=== PATIENT | male | born 1980 | race Caucasian/White ===

== ENCOUNTER 2022-05-13 15:54 | Emergency (ER) | payer BC, OTHER ==
--- OUTSIDE RECORDS SUMMARY | 2022-05-13 15:59 | XMS REPORT | Continuity of Care Document ---
:1980 [facility] Organization [facility] t Address [address] [place] [address] [address] [place] [address] Care Team Providers Name Role Phone KARI BECKER Primary Care Physician Unavailable Kari Becker Attending Clinician Unavailable NATALIE WEBER Attending Clinician Unavailable DESIRAE TEJEDA Attending Clinician Unavailable Desirae Tejeda MD Attending Clinician Doctor Unassigned, [place] Attending Clinician Unavailable MICHA BICRH Attending Clinician Unavailable Micha Birch MD Attending Clinician Payers Payer Name Policy Type Policy Number Effective Date Expiration Date [facility] [id number] 2015 CHOICE 00:00:00 Problems Condition Condition Condition Status Onset Resolution Last Treating Co mments Source Name Details Category Date Date Treatment Clinician Date C. C. Disease Active 2019-0 Univers difficile difficile 4-14 ity of diarrhea diarrhea 00:00: [address] Rotavirus Rotavirus Disease Active 2019-0 Uni vers infection infection 4-14 ity of 00:00: [address] Gastroente Gastroente Disease Active 2019-0 U nivers ritis ritis 4-13 ity of 00:00: [place] 00 Medical Branch Gastropare Gastropare Disease Active 2018-0 U nivers sis sis 4-12 ity of 00:00: [place] 00 Medical Branch Cataract Cataract Disease Active Unive rs ity of [facility] Allergies, Adverse Reactions, Alerts Allergy Allergy Status Severity Reaction(s) Onset Inactive Treating Comm ents Source Name Type Date Date Clinician NO KNOWN Drug Active Univers ALLERGIE Class ity of S [facility] Social History Social Habit Start Date Stop Date Quantity Comments Source Exposure to Not sure [facility] SARS-CoV-2 [facility] (event) Branch Tobacco use and 2021-02-20 2021-02-20 Never used Universit y of exposure 00:00:00 00:00:00 [facility] Alcohol intake 2021-02-20 2021-02-20 Current University of 00:00:00 00:00:00 non-drinker of [facility] alcohol Branch (finding) Sex Ass[birth year] At [birth year] Universit [facility] of 00:00:00 00:00:00 [facility] Smoking Status Start Date Stop Date Source Never smoker [facility] Medications Ordered Filled Start Stop Current Ordering Indication Dosage Frequency Signature Comments Components Source Medication Medication Date Date Medication? Clinician (SIG) Name Name metFORMIN Yes 1000mg Take 1,000 Univers 1,000 mg 7-13 mg by ity of tablet 18:45: mouth 2 [place] [address] (two) Medical times [place] daily with meals. MULTIVITAMI Yes 1{tbl} Take 1 Un dulce N WITH 7-13 tablet by ity of MINERALS 18:45: mouth [place] (MULTIVITAM 32 daily. Medica l IN & Branch MINERAL FORMULA ORAL) docusate Yes 100mg Take 100 Univ ers (STOOL 7-13 mg by ity of SOFTENER) 18:45: mouth [place] 100 mg 32 daily. Medical capsule Branch semaglutide Yes 1{ampul inject 1 Univers (OZEMPIC 7-13 e} Ampule ity of [place]) 18:45: under the [place] 32 skin Medical weekly. Branch metFORMIN Yes 1000mg Take 1,000 Univers 1,000 mg 7-13 mg by ity of tablet 18:45: mouth 2 [place] [address] (two) Medical times Branch daily with meals. MULTIVITAMI Yes 1{tbl} Take 1 Un dulce N WITH 7-13 tablet by ity of MINERALS 18:45: mouth [place] (MULTIVITAM 32 daily. Medica l IN & Branch MINERAL FORMULA ORAL) docusate 0 Yes 100mg Take 100 Univ ers (STOOL 7-13 mg by ity of SOFTENER) 18:45: mouth [place] 100 mg 32 daily. Medical capsule Branch semaglutide Yes 1{ampul inject 1 Univers (OZEMPIC 7-13 e} Ampule ity of [place]) 18:45: under the [place] 32 skin Medical weekly. Branch lisinopril Yes 2.5mg Take 2.5 Un dulce 2.5 mg 7-13 mg by ity of tablet 18:44: mouth [place] 09 daily. Medical Branch lisinopril Yes 2.5mg Take 2.5 Un dulce 2.5 mg 7-13 mg by ity of tablet 18:44: mouth [place] 09 daily. Medical Branch MethylPREDN MethylPREDN 2020- No Kari as Common ISolone ISolone 03-21 [place] directed Spi rit 00:00: 00:00 - [facility] 00 :00 [facility] metFORMIN 2019-0 Yes 500mg Take 500 Uni vers (FORTAMET) 5-11 mg by ity of 500 mg 24 20:34: mouth 2 [place] hr tablet 56 (two) Medical times Branch daily with meals. MULTIVITAMI Yes 1{tbl} Take 1 Un dulce N WITH 5-11 tablet by ity of MINERALS 20:34: mouth [place] (MULTIVITAM 56 daily. Medica l IN & Branch MINERAL FORMULA ORAL) docusate 2019-0 Yes 100mg Take 100 Univ ers (STOOL 5-11 mg by ity of SOFTENER) 20:34: mouth [place] 100 mg 56 daily. Medical capsule Branch semaglutide Yes 1{ampul inject 1 Univers (OZEMPIC 5-11 e} Ampule ity of [place]) 20:34: under the [place] 56 skin Medical weekly. Branch lisinopril Yes 2.5mg Take 2.5 Un dulce 2.5 mg 5-11 mg by ity of tablet 20:34: mouth [place] 56 daily. Medical Branch metFORMIN 2020-0 Yes 500mg Take 500 Uni vers (FORTAMET) 5-11 mg by ity of 500 mg 24 20:34: mouth 2 [place] hr tablet 56 (two) Medical times [place] daily with meals. MULTIVITAMI 2020-0 Yes 1{tbl} Take 1 Un dulce N WITH 5-11 tablet by ity of MINERALS 20:34: mouth [place] (MULTIVITAM 56 daily. Medica l IN & Branch MINERAL FORMULA ORAL) docusate 2020-0 Yes 100mg Take 100 Univ ers (STOOL 5-11 mg by ity of SOFTENER) 20:34: mouth [place] 100 mg 56 daily. Medical capsule Branch semaglutide 2020-0 Yes 1{ampul inject 1 Univers (OZEMPIC 5-11 e} Ampule ity of [place]) 20:34: under the [place] 56 skin Medical weekly. Branch lisinopril 2020-0 Yes 2.5mg Take 2.5 Un dulce 2.5 mg 5-11 mg by ity of tablet 20:34: mouth [place] 56 daily. Medical Branch metFORMIN 2020-0 Yes 500mg Take 500 Uni vers (FORTAMET) 5-11 mg by ity of 500 mg 24 20:34: mouth 2 [place] hr tablet 56 (two) Medical times [place] daily with meals. MULTIVITAMI 2020-0 Yes 1{tbl} Take 1 Un dulce N WITH 5-11 tablet by ity of MINERALS 20:34: mouth [place] (MULTIVITAM 56 daily. Medica l IN & Branch MINERAL FORMULA ORAL) docusate 2020-0 Yes 100mg Take 100 Univ ers (STOOL 5-11 mg by ity of SOFTENER) 20:34: mouth [place] 100 mg 56 daily. Medical capsule Branch semaglutide 2020-0 Yes 1{ampul inject 1 Univers (OZEMPIC 5-11 e} Ampule ity of [place]) 20:34: under the [place] 56 skin Medical weekly. Branch lisinopril 2020-0 Yes 2.5mg Take 2.5 Un dulce 2.5 mg 5-11 mg by ity of tablet 20:34: mouth [place] 56 daily. Medical Branch metFORMIN 2020-0 Yes 500mg Take 500 Uni vers (FORTAMET) 5-11 mg by ity of 500 mg 24 20:34: mouth 2 [place] hr tablet 56 (two) Medical times [place] daily with meals. MULTIVITAMI 2020-0 Yes 1{tbl} Take 1 Un dulce N WITH 5-11 tablet by ity of MINERALS 20:34: mouth [place] (MULTIVITAM 56 daily. Medica l IN & Branch MINERAL FORMULA ORAL) docusate 2020-0 Yes 100mg Take 100 Univ ers (STOOL 5-11 mg by ity of SOFTENER) 20:34: mouth [place] 100 mg 56 daily. Medical capsule Branch semaglutide 2020-0 Yes 1{ampul inject 1 Univers (OZEMPIC 5-11 e} Ampule ity of [place]) 20:34: under the [place] 56 skin Medical weekly. Branch lisinopril 2020-0 Yes 2.5mg Take 2.5 Un dulce 2.5 mg 5-11 mg by ity of tablet 20:34: mouth [place] 56 daily. Medical Branch metFORMIN 2020-0 Yes 500mg Take 500 Uni vers (FORTAMET) 5-11 mg by ity of 500 mg 24 20:34: mouth 2 [place] hr tablet 56 (two) Medical times [place] daily with meals. MULTIVITAMI 2020-0 Yes 1{tbl} Take 1 Un dulce N WITH 5-11 tablet by ity of MINERALS 20:34: mouth [place] (MULTIVITAM 56 daily. Medica l IN & Branch MINERAL FORMULA ORAL) docusate 2020-0 Yes 100mg Take 100 Univ ers (STOOL 5-11 mg by ity of SOFTENER) 20:34: mouth [place] 100 mg 56 daily. Medical capsule Branch semaglutide 2020-0 Yes 1{ampul inject 1 Univers (OZEMPIC 5-11 e} Ampule ity of [place]) 20:34: under the [place] 56 skin Medical weekly. Branch lisinopril 2020-0 Yes 2.5mg Take 2.5 Un dulce 2.5 mg 5-11 mg by ity of tablet 20:34: mouth [place] 56 daily. Medical Branch metFORMIN 2020-0 Yes 500mg Take 500 Uni vers (FORTAMET) 5-11 mg by ity of 500 mg 24 20:34: mouth 2 [place] hr tablet 56 (two) Medical times [place] daily with meals. MULTIVITAMI 2020-0 Yes 1{tbl} Take 1 Un dulce N WITH 5-11 tablet by ity of MINERALS 20:34: mouth [place] (MULTIVITAM 56 daily. Medica l IN & Branch MINERAL FORMULA ORAL) docusate 2020-0 Yes 100mg Take 100 Univ ers (STOOL 5-11 mg by ity of SOFTENER) 20:34: mouth [place] 100 mg 56 daily. Medical capsule Branch semaglutide 2020-0 Yes 1{ampul inject 1 Univers (OZEMPIC 5-11 e} Ampule ity of [place]) 20:34: under the [place] 56 skin Medical weekly. Branch lisinopril 2020-0 Yes 2.5mg Take 2.5 Un dulce 2.5 mg 5-11 mg by ity of tablet 20:34: mouth [place] 56 daily. Medical Branch metFORMIN 2020-0 Yes 500mg Take 500 Uni vers (FORTAMET) 5-11 mg by ity of 500 mg 24 20:34: mouth 2 [place] hr tablet 56 (two) Medical times Branch daily with meals. MULTIVITAMI 2020-0 Yes 1{tbl} Take 1 Un dulce N WITH 5-11 tablet by ity of MINERALS 20:34: mouth [place] (MULTIVITAM 56 daily. Medica l IN & Branch MINERAL FORMULA ORAL) docusate 2020-0 Yes 100mg Take 100 Univ ers (STOOL 5-11 mg by ity of SOFTENER) 20:34: mouth [place] 100 mg 56 daily. Medical capsule Branch semaglutide 2020-0 Yes 1{ampul inject 1 Univers (OZEMPIC 5-11 e} Ampule ity of [place]) 20:34: under the [place] 56 skin Medical weekly. Branch lisinopril 2020-0 Yes 2.5mg Take 2.5 Un dulce 2.5 mg 5-11 mg by ity of tablet 20:34: mouth [place] 56 daily. Medical Branch metFORMIN 2020-0 Yes 500mg Take 500 Uni vers (FORTAMET) 5-11 mg by ity of 500 mg 24 20:34: mouth 2 [place] hr tablet 56 (two) Medical times Branch daily with meals. MULTIVITAMI 2020-0 Yes 1{tbl} Take 1 Un dulce N WITH 5-11 tablet by ity of MINERALS 20:34: mouth [place] (MULTIVITAM 56 daily. Medica l IN & Branch MINERAL FORMULA ORAL) docusate 2020-0 Yes 100mg Take 100 Univ ers (STOOL 5-11 mg by ity of SOFTENER) 20:34: mouth [place] 100 mg 56 daily. Medical capsule Branch semaglutide 2020-0 Yes 1{ampul inject 1 Univers (OZEMPIC 5-11 e} Ampule ity of [place]) 20:34: under the [place] 56 skin Medical weekly. Branch lisinopril 2020-0 Yes 2.5mg Take 2.5 Un dulce 2.5 mg 5-11 mg by ity of tablet 20:34: mouth [place] 56 daily. Medical Branch diclofenac 2020-0 Yes [id number] 75mg Take 1 U nivers 75 mg EC 5-11 tablet by ity of tablet 00:00: mouth [address] [place] [address] (three) Medical times Branch daily with meals. diclofenac 2020-0 Yes [id number] 75mg Take 1 U nivers 75 mg EC 5-11 tablet by ity of tablet 00:00: mouth [address] [place] [address] (three) Medical times Branch daily with meals. diclofenac 2020-0 Yes [id number] 75mg Take 1 U nivers 75 mg EC 5-11 tablet by ity of tablet 00:00: mouth [address] [place] [address] (three) Medical times Branch daily with meals. diclofenac 2020-0 Yes [id number] 75mg Take 1 U nivers 75 mg EC 5-11 tablet by ity of tablet 00:00: mouth [address] [place] [address] (three) Medical times Branch daily with meals. diclofenac 2020-0 Yes [id number] 75mg Take 1 U nivers 75 mg EC 5-11 tablet by ity of tablet 00:00: mouth [address] [place] [address] (three) Medical times Branch daily with meals. diclofenac 2020-0 Yes [id number] 75mg Take 1 U nivers 75 mg EC 5-11 tablet by ity of tablet 00:00: mouth [address] [place] [address] (three) Medical times Branch daily with meals. diclofenac 2020-0 Yes [id number] 75mg Take 1 U nivers 75 mg EC 5-11 tablet by ity of tablet 00:00: mouth [address] [place] [address] (three) Medical times Branch daily with meals. diclofenac 2020-0 Yes [id number] 75mg Take 1 U nivers 75 mg EC 5-11 tablet by ity of tablet 00:00: mouth [address] [place] [address] (three) Medical times Branch daily with meals. diclofenac 2020-0 2020- No [id number] 75mg Take 1 Univers 75 mg EC 5-11 07-13 tablet by ity o f tablet 00:00: 00:[address] 00 :00 (three) Medical times Branch daily with meals. diclofenac 2020-0 2020- No [id number] 75mg Take 1 Univers 75 mg EC 5-11 -13 tablet by ity o f tablet 00:00: 00:00 mouth 3 [place] 00 :00 (three) Medical times Branch daily with meals. Radha Garcia 2018-08 Yes Kari 1 Common ne ne 0-07 [place] applicatio [facility] Acetonide Acetonide 00:00: n to - C HI 00 affected [facility] ondansetron Yes [id number] 4mg Take 1 Univers (ZOFRAN 6-24 tablet by ity of ODT) 4 mg 00:00: mouth [place] disintegrat 00 every 8 Medic al ing tablet (eight) Branch hours as needed for Nausea and Vomiting (N/V). ondansetron Yes [id number] 4mg Take 1 Univers (ZOFRAN 6-24 tablet by ity of ODT) 4 mg 00:00: mouth [place] disintegrat 00 every 8 Medic al ing tablet (eight) Branch hours as needed for Nausea and Vomiting (N/V). ondansetron Yes [id number] 4mg Take 1 Univers (ZOFRAN 6-24 tablet by ity of ODT) 4 mg 00:00: mouth [place] disintegrat 00 every 8 Medic al ing tablet (eight) Branch hours as needed for Nausea and Vomiting (N/V). ondansetron Yes [id number] 4mg Take 1 Univers (ZOFRAN 6-24 tablet by ity of ODT) 4 mg 00:00: mouth [place] disintegrat 00 every 8 Medic al ing tablet (eight) Branch hours as needed for Nausea and Vomiting (N/V). ondansetron Yes [id number] 4mg Take 1 Univers (ZOFRAN 6-24 tablet by ity of ODT) 4 mg 00:00: mouth [place] disintegrat 00 every 8 Medic al ing tablet (eight) Branch hours as needed for Nausea and Vomiting (N/V). ondansetron Yes [id number] 4mg Take 1 Univers (ZOFRAN 6-24 tablet by ity of ODT) 4 mg 00:00: mouth [place] disintegrat 00 every 8 Medic al ing tablet (eight) Branch hours as needed for Nausea and Vomiting (N/V). ondansetron Yes [id number] 4mg Take 1 Univers (ZOFRAN 6-24 tablet by ity of ODT) 4 mg 00:00: mouth [place] disintegrat 00 every 8 Medic al ing tablet (eight) Branch hours as needed for Nausea and Vomiting (N/V). ondansetron 2018- Yes [id number] 4mg Take 1 Univers (ZOFRAN 6-24 tablet by ity of ODT) 4 mg 00:00: mouth [place] disintegrat 00 every 8 Medic al ing tablet (eight) Branch hours as needed for Nausea and Vomiting (N/V). ondansetron 2018- Yes [id number] 4mg Take 1 Univers (ZOFRAN 6-24 tablet by ity of ODT) 4 mg 00:00: mouth [place] disintegrat 00 every 8 Medic al ing tablet (eight) Branch hours as needed for Nausea and Vomiting (N/V). ondansetron 2018-2020- No [id number] 4mg Take 1 Univers (ZOFRAN 6-24 07-13 tablet by ity of ODT) 4 mg 00:00: 00:00 mouth [place] disintegrat 00 :00 every 8 Medic al ing tablet (eight) Branch hours as needed for Nausea and Vomiting (N/V). ondansetron 2018-2020- No [id number] 4mg Take 1 Univers (ZOFRAN 6-24 07-13 tablet by ity of ODT) 4 mg 00:00: 00:00 mouth [place] disintegrat 00 :00 every 8 Medic al ing tablet (eight) Branch hours as needed for Nausea and Vomiting (N/V). metFORMIN Yes 500mg Take 500 Uni vers (FORTAMET) 5-18 mg by ity of 500 mg 24 23:52: mouth 2 [place] hr tablet 08 (two) Medical times Branch daily with meals. MULTIVITAMI Yes 1{tbl} Take 1 Un dulce N WITH 5-18 tablet by ity of MINERALS 23:52: mouth [place] (MULTIVITAM 08 daily. Medica l IN & Branch MINERAL FORMULA ORAL) docusate 2018-0 Yes 100mg Take 100 Univ ers (STOOL 5-18 mg by ity of SOFTENER) 23:52: mouth [place] 100 mg 08 daily. Medical capsule Branch semaglutide 2018- Yes 1{ampul inject 1 Univers (OZEMPIC 5-18 e} Ampule ity of [place]) 23:52: under the [place] 08 skin Medical weekly. Branch lisinopril 2019-0 Yes 2.5mg Take 2.5 Un dulce 2.5 mg 5-18 mg by ity of tablet 23:52: mouth [place] 08 daily. Medical Branch [facility] 2019- Yes Apply to Univers ne 5-18 area(s) 2 ity of acetonide 00:00: (two) [place] 0.1 % 00 times Medical ointment daily. Branch cetirizine 2018- Yes [id number] 10mg Take 1 Univers (ZYRTEC) 10 5-18 tablet by ity of mg tablet 00:00: mouth [place] 00 daily. Medical Branch [facility] 2018- Yes Apply to Univers ne 5-18 area(s) 2 ity of acetonide 00:00: (two) [place] 0.1 % 00 times Medical ointment daily. Branch cetirizine 2018- Yes [id number] 10mg Take 1 Univers (ZYRTEC) 10 5-18 tablet by ity of mg tablet 00:00: mouth [place] 00 daily. Medical Branch triquinlan [facility] 2018- Yes Apply to Univers ne 5-18 area(s) 2 ity of acetonide 00:00: (two) [place] 0.1 % 00 times Medical ointment daily. Branch cetirizine 2018- Yes [id number] 10mg Take 1 Univers (ZYRTEC) 10 5-18 tablet by ity of mg tablet 00:00: mouth [place] 00 daily. Medical Branch triquinlan [facility] 2018- Yes Apply to Univers ne 5-18 area(s) 2 ity of acetonide 00:00: (two) [place] 0.1 % 00 times Medical ointment daily. Branch cetirizine 2018- Yes [id number] 10mg Take 1 Univers (ZYRTEC) 10 5-18 tablet by ity of mg tablet 00:00: mouth [place] 00 daily. Medical Branch triquinlan [facility] 2018- Yes Apply to Univers ne 5-18 area(s) 2 ity of acetonide 00:00: (two) [place] 0.1 % 00 times Medical ointment daily. Branch cetirizine 2018- Yes [id number] 10mg Take 1 Univers (ZYRTEC) 10 5-18 tablet by ity of mg tablet 00:00: mouth [place] 00 daily. Medical Branch [facility] 2018- Yes Apply to Univers ne 5-18 area(s) 2 ity of acetonide 00:00: (two) [place] 0.1 % 00 times Medical ointment daily. Branch cetirizine 2018- Yes [id number] 10mg Take 1 Univers (ZYRTEC) 10 5-18 tablet by ity of mg tablet 00:00: mouth [place] 00 daily. Medical Branch [facility] 2018- Yes Apply to Univers ne 5-18 area(s) 2 ity of acetonide 00:00: (two) [place] 0.1 % 00 times Medical ointment daily. Branch cetirizine 2018- Yes [id number] 10mg Take 1 Univers (ZYRTEC) 10 5-18 tablet by ity of mg tablet 00:00: mouth [place] 00 daily. Medical Branch [facility]quinlan [facility] 2018- Yes Apply to Univers ne 5-18 area(s) 2 ity of acetonide 00:00: (two) [place] 0.1 % 00 times Medical ointment daily. Branch cetirizine 2018- Yes [id number] 10mg Take 1 Univers (ZYRTEC) 10 5-18 tablet by ity of mg tablet 00:00: mouth [place] 00 daily. Medical Branch triquinlan [facility] 2018- Yes Apply to Univers ne 5-18 area(s) 2 ity of acetonide 00:00: (two) [place] 0.1 % 00 times Medical ointment daily. Branch cetirizine 2018- Yes 10mg Take 1 Univers (ZYRTEC) 10 5-18 tablet by ity of mg tablet 00:00: mouth [place] 00 daily. Medical Branch [facility]quinlan [facility] 2018-2020- No [id number] Apply to Univers ne 5-18 07-13 area(s) 2 ity of acetonide 00:00: 00:00 (two) [place] 0.1 % 00 :00 times Medical ointment daily. Branch cetirizine 2018-2020- No [id number] 10mg Take 1 Univers (ZYRTEC) 10 5-18 07-13 tablet by it y of mg tablet 00:00: 00:00 mouth [place] 00 :00 daily. Medical [facility] 2018-2020- No [id number] Apply to Univers ne 5-18 07-13 area(s) 2 ity of acetonide 00:00: 00:00 (two) [place] 0.1 % 00 :00 times Medical ointment daily. Branch cetirizine 2020- No [id number] 10mg Take 1 Univers (ZYRTEC) 10 5-18 07-13 tablet by it y of mg tablet 00:00: 00:00 mouth [place] 00 :00 daily. Medical Branch ranitidine 2018- Yes [id number] 150mg Take 1 Univers 150 mg 5-16 tablet by ity of tablet 00:00: mouth 2 [place] (two) Medical times Branch daily. ranitidine 2019-0 Yes [id number] 150mg Take 1 Univers 150 mg 5-16 tablet by ity of tablet 00:00: mouth 2 [place] (two) Medical times Branch daily. ranitidine 2018- Yes [id number] 150mg Take 1 Univers 150 mg 5-16 tablet by ity of tablet 00:00: mouth 2 [place] (two) Medical times Branch daily. ranitidine 2018- Yes [id number] 150mg Take 1 Univers 150 mg 5-16 tablet by ity of tablet 00:00: mouth [address] [place] [address] (two) Medical times Branch daily. ranitidine 2019-0 Yes [id number] 150mg Take 1 Univers 150 mg 5-16 tablet by ity of tablet 00:00: mouth [address] [place] [address] (two) Medical times Branch daily. ranitidine 2018-0 Yes [id number] 150mg Take 1 Univers 150 mg 5-16 tablet by ity of tablet 00:00: mouth 2 [place] (two) Medical times Branch daily. ranitidine 2018-0 Yes [id number] 150mg Take 1 Univers 150 mg 5-16 tablet by ity of tablet 00:00: mouth 2 [place] (two) Medical times Branch daily. ranitidine 2019-0 Yes [id number] 150mg Take 1 Univers 150 mg 5-16 tablet by ity of tablet 00:00: mouth 2 [place] (two) Medical times Branch daily. ranitidine 2019-0 Yes [id number] 150mg Take 1 Univers 150 mg 5-16 tablet by ity of tablet 00:00: mouth 2 [place] (two) Medical times Branch daily. ranitidine 2020- No [id number] 150mg Take 1 Univers 150 mg 5-16 -13 tablet by ity of tablet 00:00: 00:00 mouth 2 [place] 00 :00 (two) Medical times Branch daily. ranitidine 2020- No [id number] 150mg Take 1 Univers 150 mg 5-16 -13 tablet by ity of tablet 00:00: 00:00 mouth 2 [place] 00 :00 (two) Medical times Branch daily. predniSONE 2019- Yes Prednisone Univers 10 mg 5-02 taper60 mg ity of tablet 00:00: daily ? [place] 00 days, 50 Medical mg daily ? Branch days, 40 mg daily ? days, 30 mg daily ? days, 20 mg daily ? days, 10 mg daily ? days. predniSONE 2019-0 Yes Prednisone Univers 10 mg 5-02 taper60 mg ity of tablet 00:00: daily ? [place] 00 days, 50 Medical mg daily ? Branch days, 40 mg daily ? days, 30 mg daily ? days, 20 mg daily ? days, 10 mg daily ? days. predniSONE 2019-0 Yes Prednisone Univers 10 mg 5-02 taper60 mg ity of tablet 00:00: daily ? [place] 00 days, 50 Medical mg daily ? Branch days, 40 mg daily ? days, 30 mg daily ? days, 20 mg daily ? days, 10 mg daily ? days. predniSONE 2019-0 Yes Prednisone Univers 10 mg 5-02 taper60 mg ity of tablet 00:00: daily ? [place] 00 days, 50 Medical mg daily ? Branch days, 40 mg daily ? days, 30 mg daily ? days, 20 mg daily ? days, 10 mg daily ? days. predniSONE 2019-0 Yes Prednisone Univers 10 mg 5-02 taper60 mg ity of tablet 00:00: daily ? [place] 00 days, 50 Medical mg daily ? Branch days, 40 mg daily ? days, 30 mg daily ? days, 20 mg daily ? days, 10 mg daily ? days. predniSONE 2019-0 Yes Prednisone Univers 10 mg 5-02 taper60 mg ity of tablet 00:00: daily ? [place] 00 days, 50 Medical mg daily ? Branch days, 40 mg daily ? days, 30 mg daily ? days, 20 mg daily ? days, 10 mg daily ? days. predniSONE 2019-0 Yes Prednisone Univers 10 mg 5-02 taper60 mg ity of tablet 00:00: daily ? [place] 00 days, 50 Medical mg daily ? Branch days, 40 mg daily ? days, 30 mg daily ? days, 20 mg daily ? days, 10 mg daily ? days. predniSONE 2018- Yes Prednisone Univers 10 mg 5-02 taper60 mg ity of tablet 00:00: daily ? [place] 00 days, 50 Medical mg daily ? Branch days, 40 mg daily ? days, 30 mg daily ? days, 20 mg daily ? days, 10 mg daily ? days. predniSONE Yes Prednisone Univers 10 mg 5-02 taper60 mg ity of tablet 00:00: daily ? [place] 00 days, 50 Medical mg daily ? Branch days, 40 mg daily ? days, 30 mg daily ? days, 20 mg daily ? days, 10 mg daily ? days. predniSONE 2020- No Prednisone Univers 10 mg 5-02 - taper60 mg ity of tablet 00:00: 00:00 daily ? [place] 00 :00 days, 50 Medical mg daily ? Branch days, 40 mg daily ? days, 30 mg daily ? days, 20 mg daily ? days, 10 mg daily ? days. predniSONE 2020- No [id number] Prednisone Univers 10 mg 5-02 - taper60 mg ity of tablet 00:00: 00:00 daily ? [place] 00 :00 days, 50 Medical mg daily ? Branch days, 40 mg daily ? days, 30 mg daily ? days, 20 mg daily ? days, 10 mg daily ? days. diphenhydrA Yes [id number] 25mg Take 1 Univers MINE 25 mg 4-14 tablet by ity of tablet 00:00: mouth 2 [place] (two) Medical times Branch daily as needed for Itching or Allergies. calamine-zi Yes [id number] Apply to [facility] nc oxide 4-14 area(s) as ity o f lotion 00:00: needed for [place] 00 Rash, Medical Itching or Branch Skin irritation . diphenhydrA 2018- Yes [id number] 25mg Take 1 Univers MINE 25 mg 4-14 tablet by ity of tablet 00:00: mouth 2 [place] [address] (two) Medical times Branch daily as needed for Itching or Allergies. calamine-zi Yes [id number] Apply to Univers nc oxide 4-14 area(s) as ity o f lotion 00:00: needed for [place] 00 Rash, Medical Itching or Branch Skin irritation . diphenhydrA 2019-0 Yes [id number] 25mg Take 1 Univers MINE 25 mg 4-14 tablet by ity of tablet 00:00: mouth 2 [place] (two) Medical times Branch daily as needed for Itching or Allergies. judah 2019-0 Yes [id number] Apply to Univers nc oxide 4-14 area(s) as ity o f lotion 00:00: needed for [place] 00 Rash, Medical Itching or Branch Skin irritation . diphenhydrA 2019-0 Yes [id number] 25mg Take 1 Univers MINE 25 mg 4-14 tablet by ity of tablet 00:00: mouth 2 [place] (two) Medical times Branch daily as needed for Itching or Allergies. judah 2019-0 Yes [id number] Apply to Univers nc oxide 4-14 area(s) as ity o f lotion 00:00: needed for [place] 00 Rash, Medical Itching or Branch Skin irritation . diphenhydrA 2019-0 Yes [id number] 25mg Take 1 Univers MINE 25 mg 4-14 tablet by ity of tablet 00:00: mouth 2 [place] (two) Medical times Branch daily as needed for Itching or Allergies. judah 2019-0 Yes [id number] Apply to Univers nc oxide 4-14 area(s) as ity o f lotion 00:00: needed for [place] 00 Rash, Medical Itching or Branch Skin irritation . diphenhydrA 2019-0 Yes [id number] 25mg Take 1 Univers MINE 25 mg 4-14 tablet by ity of tablet 00:00: mouth 2 [place] (two) Medical times Branch daily as needed for Itching or Allergies. judah 2019-0 Yes [id number] Apply to Univers nc oxide 4-14 area(s) as ity o f lotion 00:00: needed for [place] 00 Rash, Medical Itching or Branch Skin irritation . diphenhydrA 2019-0 Yes [id number] 25mg Take 1 Univers MINE 25 mg 4-14 tablet by ity of tablet 00:00: mouth 2 [place] 00 (two) Medical times Branch daily as needed for Itching or Allergies. judah 2019-0 Yes [id number] Apply to Univers nc oxide 4-14 area(s) as ity o f lotion 00:00: needed for [place] 00 Rash, Medical Itching or Branch Skin irritation . diphenhydrA Yes [id number] 25mg Take 1 Univers MINE 25 mg 4-14 tablet by ity of tablet 00:00: mouth 2 [place] 00 (two) Medical times Branch daily as needed for Itching or Allergies. calamine-jignesh Yes [id number] Apply to Univers nc oxide 4-14 area(s) as ity o f lotion 00:00: needed for [place] 00 Rash, Medical Itching or Branch Skin irritation . diphenhydrA Yes [id number] 25mg Take 1 Univers MINE 25 mg 4-14 tablet by ity of tablet 00:00: mouth 2 [place] 00 (two) Medical times Branch daily as needed for Itching or Allergies. calarmando-jignesh Yes [id number] Apply to Univers nc oxide 4-14 area(s) as ity o f lotion 00:00: needed for [place] 00 Rash, Medical Itching or Branch Skin irritation . diphenhydrA 2020- No [id number] 25mg Take 1 Univers MINE 25 mg 4-14 07-13 tablet by ity of tablet 00:00: 00:00 mouth 2 [place] 00 :00 (two) Medical times Branch daily as needed for Itching or Allergies. calarmando-jignesh 2020- No [id number] Apply to Univers nc oxide 4-14 07-13 area(s) as ity of lotion 00:00: [place] Rash, Medical Itching or Branch Skin irritation . diphenhydrA 2020- No [id number] 25mg Take 1 Univers MINE 25 mg 4-14 07-13 tablet by ity of tablet 00:00: 00:00 mouth 2 [place] 00 :00 (two) Medical times Branch daily as needed for Itching or Allergies. calamine-jignesh 2020- No [id number] Apply to Univers nc oxide 4-14 07-13 area(s) as ity of lotion 00:00[place] Rash, Medical Itching or Branch Skin irritation . NovoFine NovoFine 2019- Yes Kari as Comm on Plus Plus 3-25 [place] directed Spirit 00:00: - [facility] linagliptin 2017-08 Yes [id number] 5mg Take 1 Univers (TRADJENTA) 1-13 tablet by ity of 5 mg tablet 00:00: mouth [place] 00 daily. Medical Branch linagliptin 2017-08 Yes [id number] 5mg Take 1 Univers (TRADJENTA) 1-13 tablet by ity of 5 mg tablet 00:00: mouth [place] 00 daily. Medical Branch linagliptin 2017-08 Yes [id number] 5mg Take 1 Univers (TRADJENTA) 1-13 tablet by ity of 5 mg tablet 00:00: mouth [place] 00 daily. Medical Branch linagliptin 2017-08 Yes [id number] 5mg Take 1 Univers (TRADJENTA) 1-13 tablet by ity of 5 mg tablet 00:00: mouth [place] 00 daily. Medical Branch linagliptin 2017-08 Yes [id number] 5mg Take 1 Univers (TRADJENTA) 1-13 tablet by ity of 5 mg tablet 00:00: mouth [place] 00 daily. Medical Branch linagliptin 2017-08 Yes [id number] 5mg Take 1 Univers (TRADJENTA) 1-13 tablet by ity of 5 mg tablet 00:00: mouth [place] 00 daily. Medical Branch linagliptin 2017-08 Yes [id number] 5mg Take 1 Univers (TRADJENTA) 1-13 tablet by ity of 5 mg tablet 00:00: mouth [place] 00 daily. Medical Branch linagliptin 2017-08 Yes [id number] 5mg Take 1 Univers (TRADJENTA) 1-13 tablet by ity of 5 mg tablet 00:00: mouth [place] 00 daily. Medical Branch linagliptin 2017-08 Yes [id number] 5mg Take 1 Univers (TRADJENTA) 1-13 tablet by ity of 5 mg tablet 00:00: mouth [place] 00 daily. Medical Branch linagliptin 2017-08 Yes [id number] 5mg Take 1 Univers (TRADJENTA) 1-13 tablet by ity of 5 mg tablet 00:00: mouth [place] 00 daily. Medical Branch linagliptin 2017-08 Yes [id number] 5mg Take 1 Univers (TRADJENTA) 1-13 tablet by ity of 5 mg tablet 00:00: mouth [place] 00 daily. Medical Branch Tradjenta Tradjenta Yes Kari TAKE ONE Common [place] TABLET BY Spirit MOUTH - CH[facility] DAILY [facility] Daily Combo Daily Combo Yes Kari not Common Multi Multi [place] defined Spirit Vitamins Vitamins - [facility] Stool Stool Yes Kari not Common Softener Softener [place] defined Spi rit - [facility] Metformin Metformin Yes Kari TAKE ONE Common HCl HCl [place] TABLET BY Spirit MOUTH - [facility] TWICE A St DAY WITH [facility] Lisinopril Lisinopril Yes Kari 1 tablet Common [place] Spirit - [facility] Ozempic Ozempic Yes Kari DIAL AND Comm on (0.25 or (0.25 or [place] INJECT Spir it 0.5 0.5 SUBCUTANEO - CHI MG/DOSE) MG/DOSE) USLY 0.5 St MG WEEKLY [facility] Vital Signs Vital Name Observation Time Observation Value Comments Source Systolic blood 2021-02-20 18:39:00 119 mm[Hg] Univer sity [facility] Diastolic blood 2021-02-20 18:39:00 79 mm[Hg] [facility] Heart rate 2021-02-20 18:39:00 92 /min [facility] Respiratory rate 2021-02-20 18:39:00 19 /min [facility] Body height 2021-02-20 18:39:00 177.8 cm [facility] Body weight 2021-02-20 18:39:00 75.978 kg [facility] BMI 2021-02-20 18:39:00 24.03 kg/m2 [facility] Oxygen saturation in 2021-02-20 18:39:00 96 /min [facility] Arterial blood by [facility] Pulse oximetry Branch Systolic blood 2019-12-20 20:32:00 112 mm[Hg] Univer sity [facility] Diastolic blood 2019-12-20 20:32:00 79 mm[Hg] [facility] Heart rate 2019-12-20 20:32:00 85 /min [facility] Body height 2019-12-20 20:32:00 177.8 cm [facility] Body weight 2019-12-20 20:32:00 73.936 kg [facility] BMI 2019-12-20 20:32:00 23.39 kg/m2 Universi ty [facility] Systolic blood 2019-12-20 20:32:00 112 mm[Hg] Univer sity of pressure [facility] Diastolic blood 2019-12-20 20:32:00 79 mm[Hg] Unive rsity of pressure [facility] Heart rate 2019-12-20 20:32:00 85 /min Universi ty [facility] Body height 2019-12-20 20:32:00 177.[address] [facility] Body weight 2019-12-20 20:32:[address] 73[address] [facility] BMI 2019-12-20 20:32:00 23.39 kg/m2 Universi ty [facility] Procedures Procedure Date / Time Performing Clinician Source Performed ASSIGNMENT OF BENEFITS 2021-02-20 18:33:05 Doctor Unassigned, No [facility] Medical Branch AUTHORIZATION FOR 2021-01-18 05:01:00 Doctor Unassigned, No Univ [facility] RELEASE OF PHI Name Medical Branch REFERRAL- 2020-12-29 05:01:00 Doctor Unassigned, No [facility]QUEST/RESPONSE Name Medical Branch REFERRAL- 2019-12-23 05:01:00 Doctor Unassigned, No [facility] [place] REQUEST/RESPONSE Name Medical Branch ASSIGNMENT OF BENEFITS 2019-12-20 20:11:11 Doctor Unassigned, No [facility] Medical Branch Encounters Start End Encounter Admission Attending Care Care Encounter Source Date/Time Date/Time Type Type Clinicians Facility Department ID 2021-12-27 [place] [id number] Common 12:19:[address] [facility] 2021-09-05 Outpatient [place], STLMLC STLC [id number] Common 14:14:[id number] [facility] 2021-09-05 Outpatient [place], STLMLC STLC [id number] Common 13:02:[id number] [facility] 2021-09-05 [place] [id number] Common 11:29:[id number] [facility] 2021-09-05 Outpatient [place], STLMLC STLMLC [id number] Common 11:11:[id number] [facility] 2021-09-05 Outpatient [place], STLMLC STLMLC [id number] Common 11:10:[id number] [facility] 2021-09-05 Outpatient [place], STLMLC STLMLC [id number] Common 10:59:[id number] [facility] 2021-09-05 Outpatient [place], STLMLC STLMLC [id number] Common 10:57:[id number] [facility] 2022-05-13 2022-05-13 Outpatient Shukri WEBER [facility] [id number] Univers 16:00:00 16:00:00 [facility] 2022-04-16 2022-04-16 Outpatient R [facility] [id number] Univers 14:30:00 14:30:00 [id number] [facility] 2022-04-16 2022-04-16 Outpatient R TIA [facility] [id number] Univers 14:30:00 14:30:00 [facility] 2022-01-24 2022-01-24 ambulatory STLMLC STLMLC [id number] Common 00:00:00 00:00:[address] [facility] 2021-12-26 2021-12-26 ambulatory STLMLC STLMLC [id number] Common 00:00:00 00:00:[address] [facility] 2021-11-01 2021-11-01 ambulatory STLMLC STLMLC [id number] Common 00:00:00 00:00:[address] [facility] 2021-06-28 2021-06-28 ambulatory STLMLC STLMLC [id number] Common 00:00:00 00:00:[address] [facility] 2021-05-02 2021-05-02 Outpatient Shukri TEJEDA [facility] [id number] Univers 14:00:00 14:00:00 DESIRAE [id number] adrien [facility] 2021-05-02 2021-05-02 Outpatient R ILEANA, [facility] [id number] Univers 14:00:00 14:00:00 DESIRAE jurado [facility] 2021-03-19 2021-03-19 Outpatient R ILEANA, [facility] [id number] Univers 10:00:00 10:00:00 DESIRAE [id number] [facility] 2021-03-19 2021-03-19 Outpatient R ILEANA, [facility] [id number] Univers 10:00:00 10:00:00 [facility] 2021-03-08 2021-03-08 Outpatient R ILEANA, [facility] [id number] Univers 16:00:00 16:00:00 DESIRAE [id number] [facility] 2021-03-08 2021-03-08 Outpatient R ILEANA, [facility] [id number] Univers 16:00:00 16:00:00 [facility] 2021-02-20 2021-02-20 Office Ileana, [facility] [id number] Univers 13:33:15 14:16:45 Visit Desirae Bloom [id number] ity [place] Profess[place] [id number] [address] 2021-02-20 2021-02-20 Outpatient R ILEANA, [facility] [id number] Univers 13:40:00 13:40:00 DESIRAE [id number] [facility] 2021-02-20 2021-02-20 Outpatient R ILEANA, [facility] [id number] Univers 13:40:00 13:40:00 [facility] 2021-02-20 2021-02-20 Orders Doctor MARMOLEJO 1.2.840.114 [id number] Univers 00:00:00 00:00:00 Only Unassigned, SHAI [id number] ity of [place] [facility] 4.2.7.2.686 Aneesh as [phone] [address] 2021-01-18 2021-01-18 Orders Doctor JALEEL 1.2.840.114 [id number] Univers 00:00:00 00:00:00 Only Unassigned, SHAI [id number] ity of [place] [facility] 4.2.7.2.686 Aneesh as [id number] [address] 2020-12-29 2020-12-29 Orders Doctor JALEEL 1.2.840.114 [id number] Univers 00:00:00 00:00:00 Only Unassigned, SHAI [id number] ity of [place] [facility] 4.2.7.2.686 Aneesh as [id number] [address] 2020-12-28 2020-12-28 Outpatient STLMLC STLMLC [id number] Common 00:00:00 00:00:[address] [facility] 2020-12-20 2020-12-20 Outpatient STLMLC STLMLC [id number] Common 00:00:00 00:00:[address] [facility] 2020-09-25 2020-09-25 [facility] [id number] Univers 14:30:00 14:30:00 MICHA [id number] [facility] 2020-09-25 2020-09-25 [facility] [id number] Univers 14:30:00 14:30:00 MICHA [facility] 2020-09-11 2020-09-11 Outpatient STLMLC STLMLC [id number] Common 00:00:00 00:00:[address] [facility] 2020-08-29 2020-08-29 Outpatient STLMLC STLMLC [id number] Common 00:00:00 00:00:[address] [facility] 2020-08-23 2020-08-23 Outpatient STLMLC STLMLC [id number] Common 00:00:00 00:00:[address] [facility] 2020-08-22 2020-08-22 Outpatient STLMLC STLMLC [id number] Common 00:00:00 00:00:[address] [facility] 2020-08-21 2020-08-21 Outpatient STLMLC STLMLC [id number] Common 00:00:00 00:00:00 Spirit - [facility] 2020-03-21 2020-03-21 [facility] [place] [id number] Common 16:40:00 16:40:00 t [facility] [address] [facility] 2020-02-10 2020-02-10 [facility] [id number] Common 13:00:00 13:00:00 [facility] [address] Sp[address] [facility] 2020-02-09 2020-02-09 [facility] [id number] Common 15:27:00 15:27:00 [facility] [address] [facility] 2020-02-03 2020-02-03 [facility] [id number] Univers 15:00:00 15:00:[id number] ity [facility] 2019-12-28 2019-12-28 Outpatient [id number] Univers 14:00:00 14:00:00 MICHA [id number] ity [facility] 2019-12-23 2019-12-23 Orders Doctor JALEEL 1.2.840.114 [id number] 00:00:00 00:00:00 Only Unassigned, SHAI [id number] [place] [facility] 4.2.7.2.686 [id number] [facility] 2019-12-23 2019-12-23 Orders Doctor JALEEL 1.2.840.114 [id number] Univers 00:00:00 00:00:00 Only Unassigned, SHAI [id number] ity of [place] [facility] 4.2.7.2.686 Aneesh as [id number] [address] 2019-12-20 2019-12-20 [facility] 1.2.840.114 [id number] Univers 15:47:00 15:47:00 Encounter Micha [facility] [id number] ity of Surgical 4.2.7.2.686 Aneesh as Specialti [id number] Me dical es [address] [facility] 2019-12-20 2019-12-20 [facility] 1.2.840.114 [id number] Univers 15:47:00 15:47:00 Encounter Micha Epstein [id number] ity of Surgical 4.2.7.2.686 Aneesh as Specialti [id number] Me dical es [facility] [facility] 2019-12-20 2019-12-20 [facility] 1.2.840.114 [id number] 15:47:00 15:47:00 Encounter Micha [facility] [id number] Surgical 4.2.7.2.686 Specialti [id number] es [address] [place] [address] 2019-12-20 2019-12-20 [facility] 1.2.840.114 [id number] 15:47:00 15:47:00 Encounter Micha Epstein [id number] Surgical 4.2.7.2.686 Specialti [id number] es [address] [place] [address] 2019-12-20 2019-12-20 Office [facility] [id number] Univers 15:12:41 15:27:41 Visit Micha [facility] [id number] it y of Surgical 4.2.7.2.686 Aneesh as Specialti [id number] Sc dical es [address] [facility] 2019-12-20 2019-12-20 Office [facility] [id number] 15:12:41 15:27:41 Visit Micha Epstein [id number] Surgical 4.2.7.2.686 Specialti [id number] es [address] [place] 2019-12-20 2019-12-20 [facility] [id number] Univers 15:00:00 15:00:00 [facility]20 [facility] [id number] Univers 15:00:00 15:00:00 [facility] 2019-12-20 2019-12-20 Orders Doctor MARMOLEJO 1.2.840.114 [id number] [facility] 00:00:00 00:00:00 Only Unassigned, SHAI [id number] ity of [place] [facility] 4.2.7.2.686 [facility] as [id number] [place] [address] Branch 2019-12-15 2019-12-15 [facility] [id number] Common 16:20:00 16:20:[address] [facility] 2019-10-11 2019-10-11 [facility] [id number] Common 16:00:00 16:00:[address] [facility] 2019-08-20 2019-08-20 [facility] [id number] Common 09:40:00 09:40:[address] [facility] 2019-05-17 2019-05-17 [facility] [id number] Common 14:20:00 14:20:[address] [facility] 2019-02-10 2019-02-10 [facility] [id number] Common 09:00:00 09:00:[address] [facility] 2018-12-07 2018-12-07 [facility] [id number] Common 10:00:00 10:00:[address] [facility] 2018-11-20 2018-11-20 [facility] [id number] Common 08:43:00 08:43:[address] [facility] 2018-11-02 2018-11-02 [facility] [id number] Common 09:30:00 09:30:[address] [facility] 2018-10-22 2018-10-22 [facility] [id number] Common 10:09:00 10:09:[address] [facility] 2018-08-05 2018-08-05 Outpatient Brooklyn Britt [id number] Common 10:30:00 10:30:00 [facility] it [facility] 2018-03-31 2018-03-31 Outpatient Brooklyn Britt [id number] Common 08:30:00 08:30:00 [facility] it [facility] Results This patient has no known results.
[2022-05-13] MEDS ORDERED: NA CHLORIDE 0.9% 1,000 ML ONE ×2 (17:24→20:20)
[2022-05-13] MEDS ORDERED: ONDANSETRON 4 MG/2 ML VIAL ONE (17:24)
[2022-05-13] MEDS ORDERED: FAMOTIDINE 20 MG/2 ML VIAL IV ONE (17:24)
[2022-05-13 17:38] LABS: Hematocrit 44.1 % (39.6-49.0); Lymphocytes % 9.8 % (15.3-44.8); MCV 86.7 fL (80-100); MPV 9.5 fL (7.6-11.3); RBC Red Blood Cell Count 5.08 M/uL (4.33-5.43)
[2022-05-13] MEDS ORDERED: DICYCLOMINE HCL 20 MG/2 ML AMP IM ONE (17:47)
[2022-05-13 17:48] LABS: Bilirubin Total 0.9 mg/dL (0.2-1.0); Potassium 3.8 mmol/L (3.5-5.1); Protein, Total 8.1 g/dL (6.4-8.2)
--- NOTE | 2022-05-13 18:28 | RAD REPORT ---
EXAM DESCRIPTION: CT - Abdomen Pelvis W Contrast - 05/13/2022 6:12 pm CLINICAL HISTORY: abdominal pain COMPARISON: No comparisons TECHNIQUE: Biphasic, helical CT imaging of the abdomen and pelvis was performed following 100 ml non -ionic IV contrast. No oral contrast administered. All CT scans are performed using dose optimization technique as appropriate and may include automated exposure control or mA/KV adjustment according to patient size. FINDINGS: No suspicious findings in the lung bases. The liver, spleen, and pancreas show no suspicious findings. Gallbladder and biliary tree are also wi thout suspicious finding. Symmetric renal function is seen with no hydronephrosis or suspicious renal mass. No pyelonephritis o r acute parenchymal process. No bladder abnormalities. No adrenal abnormalities. No gastric dilatation or gastric wall thickening. A small amount of fluid is within the lumen of the stomach. Small bowel loops are not abnormally dilated though there are several distal small bowel loo ps that are fluid-filled. Liquid bowel content seen throughout most of the colon. A focal mass or are a of wall thickening not identified. Appendix is not uniquely identified. No direct or indirect evide nce for appendicitis. No free air, free fluid or inflammatory stranding. No hernia, mass or bulky lymphadenopathy. No suspicious bony findings. IMPRESSION: Large and small bowel enteritis pattern with no obstruction, free air or surgically benjamin gent finding.
[2022-05-13 20:30] LABS: Urine Blood Negative (Negative); Urine Glucose Negative (Negative); Urine Protein Negative (Negative)
[2022-05-13 21:00] LABS: Urine Mucus Slight /HPF (None Seen); Urine RBC <5 /HPF (None Seen)
--- NOTE | 2022-05-13 21:10 | ER ---
Nurse's Notes [facility] Name: Isrrael Navarro Age: 41 yrs Sex: Male : 1980 Arrival Date: 05/13/2022 Time: 15:58 Bed 15 Private MD: Diagnosis: Nausea with vomiting, unspecified;Diarrhea, unspecified Presentation: 05/13 16:11 Chief complaint: Patient states: he has been having nausea and vomiting that started ap3 this morning. patient also reports feeling cold and hot at the same time. Coronavirus screen: At this time, the client does not indicate any symptoms associated with coronavirus-19. Ebola Screen: No symptoms or risks identified at this time. Initial Sepsis Screen: Does the patient meet any 2 criteria? HR > 90 bpm. Does the patient have a suspected source of infection? No. Patient's initial sepsis screen is negative. Risk Assessment: Do you want to hurt yourself or someone else? Patient reports no desire to harm self or others. Onset of symptoms was May 13, 2022. 16:11 Method Of Arrival: Ambulatory ap3 16:11 Acuity: DELMAR 3 ap3 Triage Assessment: 16:14 General: Appears ill, Behavior is cooperative. General: Reports chills for fever for ap3 feeling ill for fatigue for. Pain: Complains of pain in abdomen. Neuro: Level of Consciousness is awake, alert, obeys commands, Oriented to person, place, time, situation. Cardiovascular: Patient's skin is warm and dry. Respiratory: Reports cough that is Airway is patent Respiratory effort is even, unlabored. GI: Reports lower abdominal pain, upper abdominal pain, nausea, vomiting. Historical: - Allergies: 16:12 No Known Allergies; ap3 - Home Meds: 16:12 Metformin Oral [Active]; Ozempic subcutaneous [Active]; Lisinopril Oral [Active]; ap3 - PMHx: 16:12 Diabetes - NIDDM; ap3 - Immunization history:: Client reports receiving the 2nd dose of the Covid vaccine. - Social history:: Smoking status: Patient denies any tobacco usage or history of. Screenin:15 Abuse screen: Denies threats or abuse. Nutritional screening: No deficits noted. ap3 Tuberculosis screening: No symptoms or risk factors identified. Fall Risk None identified. Assessment: 18:15 Reassessment: No changes from previously documented assessment. GI: Pt is actively ko1 vomiting bile, clear fluid. 19:21 General: Appears uncomfortable, ill, Behavior is cooperative, appropriate for age, aa9 quiet. General: Reports fatigue for 0-12 hours. Pain: Denies pain. Neuro: Level of Consciousness is awake, alert, obeys commands, Oriented to person, place, time, situation. Cardiovascular: Patient's skin is warm and dry. Respiratory: Airway is patent Respiratory effort is even, unlabored. 21:05 General: Appears uncomfortable, ill, Behavior is cooperative, appropriate for age, aa9 quiet. Pain: Denies pain. Neuro: Level of Consciousness is awake, alert, obeys commands, Oriented to person, place, time, situation. Cardiovascular: Patient's skin is warm and dry. Respiratory: Airway is patent Respiratory effort is even, unlabored. GI: Abdomen is flat, Bowel sounds present X 4 quads. Vital Signs: 16:11 BP 108 / 81; Pulse 117; Resp 17; Temp 97.9; Pulse Ox 100% ; Weight 74.84 kg; Height 5 ap3 ft. 10 in. (177.80 cm); 18:00 BP 115 / 75; Pulse 112; ko1 19:15 BP 110 / 74; Pulse 112; Resp 16 S; Temp 100.3(TE); Pulse Ox 98% on R/A; aa9 19:30 BP 109 / 72; Pulse 109; Resp 16 S; Temp 99.1(O); Pulse Ox 99% on R/A; aa9 20:30 BP 101 / 65; Pulse 98; Resp 16 S; Pulse Ox 99% on R/A; aa9 21:00 BP 110 / 68; Pulse 108; Resp 18 S; Pulse Ox 100% on R/A; aa9 21:28 BP 112 / 70; Pulse 98; Resp 18; Pulse Ox 99% on R/A; aa9 16:11 Body Mass Index 23.67 (74.84 kg, 177.80 cm) ap3 ED Course: 15:58 Patient arrived in ED. rg4 16:02 Montez Alcaraz PA is PHCP. cp 16:02 Michael Calvert MD is Attending Physician. cp 16:12 Triage completed. ap3 16:15 Arm band placed on right wrist. ap3 16:50 Torres, Stacy, RN is Primary Nurse. ko1 17:15 Inserted saline lock: 22 gauge in right antecubital area, using aseptic technique. ko1 Blood collected. 17:31 CBC with Diff Sent. ko1 17:31 CMP Sent. ko1 17:32 Lipase Sent. ko1 18:15 Patient has correct armband on for positive identification. Bed in low position. Call ko1 light in reach. Side rails up X 1. 18:15 No provider procedures requiring assistance completed. ko1 19:27 Motnez Reid MD is Attending Physician. cp 21:28 IV discontinued, intact, bleeding controlled, No redness/swelling at site. Pressure aa9 dressing applied. Administered Medications: 17:32 Drug: NS 0.9% 1000 ml Route: IV; Rate: 1 bolus; Site: right antecubital; ko1 17:32 Drug: Zofran (Ondansetron) 4 mg Route: IVP; Site: right antecubital; ko1 21:06 Follow up: Response: No adverse reaction aa9 17:50 Drug: Dicyclomine 20 mg Route: IM; Site: right deltoid; ko1 21:27 Follow up: Response: No adverse reaction aa9 17:56 Drug: Pepcid (famotidine) 20 mg Route: IVP; Site: right antecubital; ko1 21:07 Follow up: Response: No adverse reaction aa9 20:35 Drug: NS 0.9% 1000 ml Route: IV; Rate: 1 bolus; Site: right antecubital; aa9 21:28 Follow up: Response: No adverse reaction; IV Status: Completed infusion; IV Intake: aa9 1000ml 21:27 Drug: Phenergan (promethazine) 25 mg Route: IM; Site: left deltoid; aa9 21:27 Follow up: Response: No adverse reaction aa9 21:27 Drug: LoMOTIL (diphenoxylate-atropine) 2 tabs Route: PO; aa9 21:27 Follow up: Response: No adverse reaction aa9 Medication: 16:15 VIS not applicable for this client. ap3 Intake: 21:28 IV: 1000ml; Total: 1000ml. aa9 Outcome: 21:09 Discharge ordered by . cp 21:27 Discharged to home via wheelchair, with family. aa9 21:27 Condition: stable 21:27 Discharge instructions given to patient, Instructed on discharge instructions, follow up and referral plans. medication usage, Demonstrated understanding of instructions, follow-up care, medications, Prescriptions given X 2. 21:47 Patient left the ED. aa9 Signatures: Montez Alcaraz PA PA cp Garcia, Rubi rg4 Serena Mayes RN RN ap3 Wanda Hall RN RN aa9 Stacy Macdonald RN RN ko1 Corrections: (The following items were deleted from the chart) 18:32 18:15 Reassessment: No changes from previously documented assessment. ko1 ko1 19:44 19:22 BP 110 / 74; Pulse 112bpm; Resp 16bpm; Spontaneous; Pulse Ox 98% RA; Temp 100.3F aa9 Oral; aa9
--- NOTE | 2022-05-13 21:10 | EDPHYS ---
Physician Documentation [facility] Name: Isrrael Navarro Age: 41 yrs Sex: Male : 1980 Arrival Date: 05/13/2022 Time: 15:58 Bed 15 Private MD: ED Physician Montez Reid HPI: 05/13 16:30 This 41 yrs old Male presents to ER via Ambulatory with complaints of cp Nausea/Vomiting/Diarrhea, Cramps. 16:30 The patient presents to the emergency department with nausea, with "dry heaves", cp vomiting, that is continuous, diarrhea, that is continuous, abdominal pain, of the mid abdomen. Onset: The symptoms/episode began/occurred this morning. Possible causes: unknown. The symptoms are alleviated by nothing. Associated signs and symptoms: Pertinent positives: abdominal pain, anorexia, chills and sweats, Pertinent negatives: constipation, fever, GI bleeding. Severity of symptoms: in the emergency department the symptoms are unchanged despite home interventions. Historical: - Allergies: 16:12 No Known Allergies; ap3 - Home Meds: 16:12 Metformin Oral [Active]; Ozempic subcutaneous [Active]; Lisinopril Oral [Active]; ap3 - PMHx: 16:12 Diabetes - NIDDM; ap3 - Immunization history:: Client reports receiving the 2nd dose of the Covid vaccine. - Social history:: Smoking status: Patient denies any tobacco usage or history of. ROS: 16:35 Constitutional: Positive for chills, poor PO intake, Negative for fever. cp 16:35 Eyes: Negative for injury, pain, redness, and discharge. cp 16:35 ENT: Negative for drainage from ear(s), ear pain, sore throat, difficulty swallowing, difficulty handling secretions. 16:35 Cardiovascular: Negative for chest pain, palpitations. 16:35 Respiratory: Negative for cough, shortness of breath, wheezing. 16:35 Abdomen/GI: Positive for abdominal pain, nausea, vomiting, and diarrhea, anorexia, Negative for hematemesis, black/tarry stool, rectal bleeding. 16:35 Back: Negative for pain at rest, pain with movement. 16:35 Neuro: Negative for altered mental status, headache, weakness. 16:35 All other systems are negative. Exam: 16:40 Constitutional: The patient appears in no acute distress, alert, awake, cp non-diaphoretic, non-toxic, well developed, well nourished, uncomfortable. 16:40 Head/Face: Normocephalic, atraumatic. cp 16:40 Eyes: Periorbital structures: appear normal, Conjunctiva: normal, no exudate, no injection, Sclera: no appreciated abnormality, Lids and lashes: appear normal, bilaterally. 16:40 ENT: External ear(s): are unremarkable, Nose: is normal, Mouth: Lips: moist, Oral mucosa: pink and intact, moist, Posterior pharynx: Airway: no evidence of obstruction, patent, swelling, is not appreciated, erythema, is not appreciated, exudate, is not appreciated. 16:40 Chest/axilla: Inspection: normal. 16:40 Cardiovascular: Rate: tachycardic, Rhythm: regular. 16:40 Respiratory: the patient does not display signs of respiratory distress, Respirations: normal, no use of accessory muscles, no retractions, labored breathing, is not present, Breath sounds: are clear throughout, no decreased breath sounds, no stridor, no wheezing. 16:40 Abdomen/GI: Inspection: abdomen appears normal, Bowel sounds: active, all quadrants, Palpation: soft, in all quadrants, moderate abdominal tenderness, in the mid abdomen, rebound tenderness, is not appreciated, involuntary guarding, is not appreciated. 16:40 Back: pain, is absent, ROM is normal. 16:40 Neuro: Orientation: to person, place \\T\\ time. Mentation: is normal, Motor: moves all fours, strength is normal, Sensation: is normal. Vital Signs: 16:11 BP 108 / 81; Pulse 117; Resp 17; Temp 97.9; Pulse Ox 100% ; Weight 74.84 kg; Height 5 ap3 ft. 10 in. (177.80 cm); 18:00 BP 115 / 75; Pulse 112; ko1 19:15 BP 110 / 74; Pulse 112; Resp 16 S; Temp 100.3(TE); Pulse Ox 98% on R/A; aa9 19:30 BP 109 / 72; Pulse 109; Resp 16 S; Temp 99.1(O); Pulse Ox 99% on R/A; aa9 20:30 BP 101 / 65; Pulse 98; Resp 16 S; Pulse Ox 99% on R/A; aa9 21:00 BP 110 / 68; Pulse 108; Resp 18 S; Pulse Ox 100% on R/A; aa9 21:28 BP 112 / 70; Pulse 98; Resp 18; Pulse Ox 99% on R/A; aa9 16:11 Body Mass Index 23.67 (74.84 kg, 177.80 cm) ap3 MDM: 16:42 Patient medically screened. 21:09 Data reviewed: vital signs, nurses notes, lab test result(s), radiologic studies, CT cp scan. 21:09 Differential diagnosis: gastritis, cholecystitis, viral gastroenteritis, cp gastroenteritis. Counseling: I had a detailed discussion with the patient and/or guardian regarding: the historical points, exam findings, and any diagnostic results supporting the discharge/admit diagnosis, lab results, radiology results, to return to the emergency department if symptoms worsen or persist or if there are any questions or concerns that arise at home. Response to treatment: the patient's symptoms have markedly improved after treatment, and as a result, I will discharge patient. Special discussion: Based on the patient's Hx, exam, and Dx evaluation, there is no indication for emergent surgery or inpatient Tx. It is understood by the patient/guardian that if the Sx's persist or worsen they need to return immediately for re-evaluation. 21:09 ED course: VSS. Nausea and pain markedly improved. Vomiting resolved. Will discharge to home for continued monitoring and oral hydration. 05/13 16:16 Order name: CBC with Diff 05/13 16:16 Order name: CMP cp 05/13 16:16 Order name: Lipase cp 05/13 17:39 Order name: CBC with Automated Diff; Complete Time: 17:43 EDMS 05/13 17:43 Interpretation: Normal except: DARRIUS% 85.1; LYM% 9.8; NEUT A 8.4. cp 05/13 17:49 Order name: Comprehensive Metabolic Panel; Complete Time: 18:22 EDMS 05/13 18:22 Interpretation: Normal except: GLUC 141. cp 05/13 17:43 Order name: CT Abd/Pelvis - IV Contrast Only cp 05/13 17:49 Order name: Lipase; Complete Time: 18:22 EDMS 05/13 18:29 Order name: CT; Complete Time: 19:55 EDMS 05/13 20:30 Order name: Urine Dipstick-Ancillary EDMS 05/13 21:00 Order name: Urine Microscopic Only EDMS 05/13 16:16 Order name: Accucheck Blood Glucose; Complete Time: 21:37 cp 05/13 16:16 Order name: IV Saline Lock; Complete Time: 17:32 cp 05/13 16:16 Order name: Labs collected and sent; Complete Time: 17:32 cp 05/13 16:16 Order name: Urine Dipstick-Ancillary (obtain specimen); Complete Time: 20:36 cp 05/13 19:56 Order name: PO challenge; Complete Time: 20:36 cp Administered Medications: 17:32 Drug: NS 0.9% 1000 ml Route: IV; Rate: 1 bolus; Site: right antecubital; ko1 17:32 Drug: Zofran (Ondansetron) 4 mg Route: IVP; Site: right antecubital; ko1 21:06 Follow up: Response: No adverse reaction aa9 17:50 Drug: Dicyclomine 20 mg Route: IM; Site: right deltoid; ko1 21:27 Follow up: Response: No adverse reaction aa9 17:56 Drug: Pepcid (famotidine) 20 mg Route: IVP; Site: right antecubital; ko1 21:07 Follow up: Response: No adverse reaction aa9 20:35 Drug: NS 0.9% 1000 ml Route: IV; Rate: 1 bolus; Site: right antecubital; aa9 21:28 Follow up: Response: No adverse reaction; IV Status: Completed infusion; IV Intake: aa9 1000ml 21:27 Drug: Phenergan (promethazine) 25 mg Route: IM; Site: left deltoid; aa9 21:27 Follow up: Response: No adverse reaction aa9 21:27 Drug: LoMOTIL (diphenoxylate-atropine) 2 tabs Route: PO; aa9 21:27 Follow up: Response: No adverse reaction aa9 Disposition Summary: 05/13/22 21:09 Discharge Ordered Location: Home cp Problem: new cp Symptoms: have improved cp Condition: Stable cp Diagnosis - Nausea with vomiting, unspecified cp - Diarrhea, unspecified cp Followup: cp - With: Private Physician - When: 1 - 2 days - Reason: Worsening of condition Discharge Instructions: - Food Choices to Help Relieve Diarrhea, Adult cp - Diarrhea, Adult cp - Discharge Summary Sheet ko1 - Nausea and Vomiting, Adult cp Forms: - SBAR form ko1 - Medication Reconciliation Form cp - Thank You Letter cp - Antibiotic Education cp - Prescription Opioid Use cp - Work release form aa9 Prescriptions: - Zofran 4 mg Oral Tablet - take 1 tablet by ORAL route every 12 hours As needed; 20 tablet; Refills: 0, cp Product Selection Permitted - Lomotil 2.5-0.025 mg Oral Tablet - take 1 tablet by ORAL route every 6 hours As needed; 20 tablet; Refills: 0, cp Product Selection Permitted Signatures: Dispatcher [employer] EDMS Montez Alcaraz PA PA cp Prokisch, Amanda RN RN ap3 Wanda Hall, RN RN aa9 Stacy Macdonald RN RN ko1 Corrections: (The following items were deleted from the chart) 17:47 16:17 [email or web address] ordered. EDVA EDMS
[2022-05-13] MEDS ORDERED: PROMETHAZINE INJ 25 MG/ML AMP ONE (21:16)
[2022-05-13] MEDS ORDERED: DIPHENOX/ATROP SULF 1 TAB PO ONE (21:18)
[2022-05-13 22:21] VITALS: TEMP 99.1
[2022-05-13 22:24] VITALS: BP 112/70; O2SAT 99
== END 2022-05-13 21:47 | disposition home or self-care (01) ==
LOC: ER 15:54
DX: R11.2 Nausea with vomiting, unspecified (principal); R19.7 Diarrhea, unspecified; E11.9 Type 2 diabetes mellitus without complications
CPT/HCPCS: 96361; 85025; 36415; 83690; 80053; 74177; 96375; 96372; 96374; 99284; Q9967; J2550; J0500; J7030 ×2; J2405; 81003; 81015